=== PATIENT | male | born 1980 | race Caucasian/White ===

== ENCOUNTER → 2020-02-05 14:59 | Outpatient (CLI) | payer OTHER, SELFPAY ==
[2020-02-05 15:07] LABS: Microscopic, Urine URINE MICROSCOPIC (MICROSCOPIC)
[2020-02-05 15:15] LABS: Appearance,Urine CLEAR (Clear); Basophils % 0.4 % (0.1-2.0); Bilirubin,Urine Negative (Negative); Blood, Urine 1+ (Negative); Color,Urine YELLOW (Yellow); Eosinophils # 0.4 K/mm3 (0.0-0.4); Eosinophils % 4.3 % (0.1-12.0); Glucose,Urine (UA) Negative (Negative); Hematocrit 41.2 % (42.0-52.0); Hemoglobin 14.8 g/dL (14.1-18.0); Ketones,Urine Negative (Negative); Leukocyte Esterase,Urine Negative (Negative); Lymphocytes % 20.8 % (10-50); Mean Corpuscular HGB Conc 35.8 g/dL (31.8-35.4); Mean Corpuscular Hemoglobin 31.2 pg (27.0-31.2); Mean Corpuscular Volume 87.2 fl (80-94); Mean Platelet Volume 8.8 fl (7.4-10.4); Monocytes # 0.5 K/mm3 (0.1-1.0); Monocytes % 5.2 % (1.7-9.3); Neutrophils # 6.5 K/mm3 (1.8-7.8); Neutrophils % 69.2 % (37.0-80.0); Nitrate,Urine Negative (Negative); Platelet Count 289 K/mm3 (142-424); Protein,Urine Negative (Negative); Red Blood Count 4.72 M/mm3 (4.60-6.20); Red Cell Distribution Width 13.3 % (11.5-17.5); Urobilinogen,Urine 0.2 EU/dl (0.2); White Blood Count 9.3 K/mm3 (4.8-10.8)
[2020-02-05 15:26] LABS: Amorphous Sediment,Urine Trace /lpf; RBC,Urine Occasional #/hpf (0-3)
--- NOTE | 2020-02-05 15:46 | CT_ITS ---
PROCEDURE: CT ABDOMEN PELVIS WO CON CLINICAL INDICATION: L SIDE PAIN, R/O KIDNEY STONES Left flank pain COMPARISON: No exams were available for comparison TECHNIQUE: Axial images obtained with sagittal and coronal reformats. All CT scans at the facility use one or more dose reduction, viz: automated exposure control, ma/kV adjustment per patient size (including targeted exams where dose is matched to indication, i.e. head), or iterative reconstruction technique. FINDINGS: LOWER THORAX: Calcified granuloma is present in the right lower lobe. ABDOMEN & PELVIS: The liver, adrenal glands, and pancreas have an unremarkable appearance. There is borderline splenomegaly at 13 cm. No renal or ureteral calculi. There is a small hyperdensity along the upper pole of the left kidney 5 mm with an average density of 34 Hounsfield units and may be due to small hyperdense cyst no hydronephrosis. Unremarkable appendix. There is minimal stranding of the fat along the anterior lateral aspect of the descending colon best seen on image 50 series 3. This is nonspecific but could be seen with mild epiploic appendagitis. There is mild thickening of the colon involving the a patent flexure and transverse colon which may be due to nondistention. No evidence of diverticulitis. No abscess. There are few small mesenteric and inguinal lymph nodes. No acute bony findings. There is a small umbilical hernia containing fat. IMPRESSION: 1. Possible mild epiploic appendagitis along the descending colon 2. Borderline splenomegaly 3. Small hyperdensity along the upper pole of the left kidney at 34 Hounsfield units which may be due to a small hyperdense cyst. Ultrasound may confirm. Dictated by: Nicholas Chen MD 02/05/2020 16:30 Nicholas Chen MD in [place] 02/05/2020 16:30
== END ==
PROVIDERS: Visit Provider Internal Medicine
DX: R10.32 Left lower quadrant pain (principal); R10.12 Left upper quadrant pain
CPT/HCPCS: 36415; 74176; 81001; 85025

== ENCOUNTER → 2020-03-05 09:28 | Outpatient (CLI) | payer OTHER, SELFPAY ==
[2020-03-05 11:12] LABS: Coronavirus 19 IgG Antibody Negative (Negative); Coronavirus 19 IgM Antibody Negative (Negative)
== END ==
PROVIDERS: Visit Provider Internal Medicine Gastroenterology
DX: Z01.89 Encounter for other specified special examinations (principal); Z12.11 Encounter for screening for malignant neoplasm of colon
CPT/HCPCS: 36415; 86328

== ENCOUNTER 2020-03-07 11:59 | Day surgery (SDC) | payer OTHER, SELFPAY ==
[2020-03-02 10:09] VITALS: BMI 28.1
[2020-03-07 12:44] VITALS: BP 114/81; PULSE 74; RESP 15; TEMP 36.4; O2SAT 98
--- NOTE | 2020-03-07 14:09 | HMH.PROC ---
[facility] Procedure Note Procedure Note:: Colonoscopy Procedure Report: Colonoscopy with cold snare polypectomy Endoscopist: Mckay Vinson II, MD Referring physician: Rodríguez Wright MD Date of Procedure: March 07, 2020 Equipment: Olympus 180 variable stiffness pediatric colonoscope Sedation: MAC sedation Indication: Mr. Lopez is a 40-year-old gentleman who is here for initial screening colonoscopy secondary to a family history of colon polyps. The patient's father had adenomatous colon polyps in his 40s. The patient reports no abdominal pain, weight loss, change in his bowel habits or rectal bleeding. He reports no family history of colon cancer. He does have some intermittent constipation. Procedure: Prior to the procedure, a history and physical exam was performed, and patient's medications and allergies were reviewed. The risks, benefits and alternatives of the sedation and procedure were discussed with the patient. All questions were answered and informed consent was obtained. The patient was brought to the procedure room. Patient identification and proposed procedure were verified by the physician and the nurse. The patient was placed in a left lateral decubitus position and the scope was passed under direct vision. Throughout the procedure, the patient's blood pressure, pulse, and oxygen saturations were monitored continuously. The colonoscopy was accomplished without difficulty. The patient tolerated the procedure well. Findings: On digital rectal examination there was normal rectal tone. There were no external hemorrhoids. The colonoscope was introduced through the anal canal to the rectum and advanced to the cecum. The ileocecal valve and appendiceal orifice were identified. The scope was advanced a short distance into the ileum which appeared grossly normal. The scope was then withdrawn into the colon. There were 3 colon polyps (cecum x1 (7 mm), transverse x1 (3 mm) and sigmoid x1 (4 mm)) which were all removed via cold snare polypectomy. The remaining cecum, ascending, transverse, descending, sigmoid and rectum were grossly normal. There were no mucosal abnormalities identified. Upon retroflexion within the rectum there were grade 1-2 internal hemorrhoids.The preparation was excellent throughout with Marydel Preparation Score of 9. The cecal time was 12 minutes. Impression: 1. Diminutive colonic polyps x3 2. Grade 1-2 internal hemorrhoids Plan: I will follow up the polyp pathology and recommend repeat colonoscopy again in 5-10 years based upon the polyp histology. I would encourage fiber supplementation on a long-term daily maintenance basis.
[2020-03-07 14:10] VITALS: BP 135/81; PULSE 78; RESP 18; TEMP 36.2; O2SAT 93
[2020-03-07 14:20] VITALS: BP 140/77; PULSE 77; RESP 18; O2SAT 94
--- NOTE | 2020-03-07 14:22 | P.PN_ITS ---
[facility] Anesthesia Checklist - Structural Data Admitted From: Home Planned Operative Procedure/s: colonoscopy Consent for Planned Operative Procedure(s) Verified: Yes - Airway Assessment C-Spine Mobility Assessed: Yes TMJ Mobility Assessed: Yes Dentition: Dentures-good fit - Neurological Assessment Level of Consciousness: Awake, Alert, Appropriate - Anesthesia Plan Anesthesia Risk discussed: Yes Anesthesia Plan: Verified ASA Class: III Anesthesia Type: MAC [facility] History I have reviewed the patient's past medical history: Yes Medical History: Denies:: Cancer, Diabetes Mellitus Type 1, Diabetes Mellitus Type 2, Internal Pacemaker, MRSA, Seizures *Have you ever received a pneumonia vaccine?: No *Have you received a flu vaccine this season?: Yes Anesthesia experience/problems:: none Other Surgeries: No: Pacemaker Amputation: No Fractures: No - *Social History Alcohol Intake: never Substance Use Type: denies use *Occupational Status:: employed Housing: house Household Members: family *Travel in the last 8 weeks: None Family Hx:: No significant family history
[2020-03-07 14:30] VITALS: BP 139/81; PULSE 76; RESP 18; O2SAT 96
[2020-03-07 14:46] VITALS: BP 139/84; PULSE 71; RESP 18; O2SAT 99
== END 2020-03-07 14:52 | disposition home or self-care (01) ==
LOC: OUTP 12:02
PROVIDERS: PCP Internal Medicine; Visit Provider Internal Medicine Gastroenterology
PROC: 0DJD8ZZ Inspection of Lower Intestinal Tract, Via Natural or Artificial Opening Endoscopic (ICD-10-PCS; CPT 45378; principal; 2020-03-07 13:00)
DX: Z12.11 Encounter for screening for malignant neoplasm of colon (principal); K63.5 Polyp of colon; K64.0 First degree hemorrhoids; Z83.71 Family history of colonic polyps; Z80.0 Family history of malignant neoplasm of digestive organs; F41.9 Anxiety disorder, unspecified; F32.9 Major depressive disorder, single episode, unspecified; Z79.899 Other long term (current) drug therapy
CPT/HCPCS: 45385

== ENCOUNTER 2020-11-26 11:12 | Emergency (ER) | payer OTHER, SELFPAY ==
[2020-11-26 11:33] VITALS: BP 120/78; PULSE 79; RESP 20; TEMP 36.9; O2SAT 99; BMI 29.7
--- NOTE | 2020-11-26 12:16 | XR_ITS ---
PROCEDURE INFORMATION: Exam: XR Left Ribs with PA Chest Exam date and time: 11/26/2020 12:16 PM Age: 40 years old Clinical indication: Other: Left posterior and side rib pain; Additional info: Pain, no injury TECHNIQUE: Imaging protocol: XR Left ribs with PA chest. Views: 3 views COMPARISON: CT ABDOMEN PELVIS WO CON 02/05/2020 3:54 PM FINDINGS: Lungs: See Soft tissues finding. Pleural spaces: Unremarkable. No pleural effusion. No pneumothorax. Heart/Mediastinum: Unremarkable. No cardiomegaly. Bones/joints: See Soft tissues finding. Soft tissues: The submitted view of the chest is unremarkable. No acute cardiopulmonary process. The ribs are grossly normal. No acute or chronic fracture appreciated. No lytic process or expansile process. No rib notching. IMPRESSION: Unremarkable ribs.
--- NOTE | 2020-11-26 13:04 | HMH.EDUTC ---
[facility] Disposition Clinical Impression: Rib pain on left side Disposition: Home, Self-Care Condition on Discharge: Good Instructions: DI for Rib Contusion Prescriptions: Cyclobenzaprine HCl [Flexeril 10mg tablet] 10 mg PO Q8HP PRN 10 Days #30 tab PRN Reason: Muscle Spasm Transmission Status: Pending to [facility] Lidocaine [Lidoderm 5% transdermal patch] 1 each TP Q24H 30 Days #30 adh..patch Transmission Status: Pending to [facility] Ketorolac Tromethamine [Toradol 10mg tablet] 10 mg PO Q6HP PRN 5 Days #20 tab MDD 40mg/day PRN Reason: pain Transmission Status: Pending to [facility] Referrals: Rodríguez Wright [Primary Care Provider] - Medical Decision Making - [place] Inquiry Pt receiving controlled substance: No Vital Signs: 11/26/20 11:33 Temperature 98.5 F Temperature Source Temporal Artery Scan Pulse Rate [Left] 79 Respiratory Rate 20 Blood Pressure [Right Arm] 120/78 Blood Pressure Mean [Right Arm] 92 02 Sat by Pulse Oximetry 99 Orders (Tests/Meds): ED MEDICATIONS Discontinued Medications Generic Name Dose Route Start Last Admin Trade Name Freq PRN Reason Stop Dose Admin Ketorolac Tromethamine 60 mg 11/26/20 11:52 11/26/20 11:53 Ketorolac 60mg/2ml Vial IM 11/26/20 11:53 60 mg ONCE ONE Administration ORDERS Category Date Time Status XR ribs LT min 3V w CXR1V Stat Exams 11/26/20 12:16 Taken - Radiology Data #1 Image(s): Chest, Other (ribs) Image Reviewed: Yes I reviewed the patient's radiology image Preliminary Findings: Normal/NAD, No Fracture Seen [facility] HPI - General Stated complaint: lft back pain Time Seen by Provider: 11/26/20 12:05 Mode of Arrival: Ambulatory Source of Information: Patient Limitations: No Limitations Description of Symptoms (Recalled from Triage Doc. by RN): pt c/o L flank pain that started after he sneezed a few days ago. HEENT Symptoms (Recalled from RN notes): No Resp Symptoms (Recalled from RN notes): No Skin Symptoms (Recalled from RN notes): No MS Symptoms (Recalled from RN notes): No Functional Status (Recalled from RN notes): na - History of Present Illness Provider Complaint: Patient states that he sneezed rather violently yesterday and had pain in his left side. It has gotten progressively worse and he cannot get comfortable. It is particularly bad if he coughs or sneezes again. He has never had a kidney stone and has no pain with urination or hematuria. Onset (ago): day(s) (1) Location: chest Relieving factors: none Exacerbating factors: none Associated symptoms: denies other symptoms Treatments prior to arrival: none - Related Data Home Medications Medication Instructions Recorded Confirmed Cetirizine HCl [Zyrtec] 10 mg PO DAILY 03/02/20 03/07/20 Citalopram Hydrobromide 40 mg PO DAILY 03/02/20 03/07/20 [Citalopram 40mg Tablet] Montelukast Sodium 4 mg PO DAILY 03/02/20 03/07/20 Previous Rx's Medication Instructions Recorded Cyclobenzaprine HCl [Flexeril 10mg 10 mg PO Q8HP PRN 10 Days #30 tab 11/26/20 tablet] Ketorolac Tromethamine [Toradol 10 mg PO Q6HP PRN 5 Days #20 tab 11/26/20 10mg tablet] MDD 40mg/day Lidocaine [Lidoderm 5% transdermal 1 each TP Q24H 30 Days #30 11/26/20 patch] adh..patch Allergies Allergy/AdvReac Type Severity Reaction Status Date / Time No Known Allergies Allergy Verified 03/07/20 12:43 - Worker's Comp Is this a Worker's Comp case?: No [facility] History - Hepatitis A Screen Drug use history?: No High risk sexual behaviors?: No History of sexually transmitted infection?: No Currently employed?: No Childcare worker?: No Do you have indoor plumbing?: Yes Do you have electricity?: Yes Attestation statement:: This patient has been screened for Hepatitis A risk factors. Medical History: Denies:: Cancer, Diabetes Mellitus Type 1, Diabetes Mellitus Type 2, Internal Pacemaker, MRSA, Seizures Other Surgeries
[2020-11-26 13:20] VITALS: BP 129/75; PULSE 77; RESP 18; TEMP 36.6
== END 2020-11-26 13:24 | disposition home or self-care (01) ==
PROVIDERS: Emergency Provider Physician Assistant; PCP Internal Medicine
DX: R07.81 Pleurodynia (principal)
CPT/HCPCS: 71101; 96372; 99202; G0463

== ENCOUNTER → 2021-06-05 10:00 | Outpatient (CLI) | payer OTHER, SELFPAY | PROVIDERS: PCP Internal Medicine; Visit Provider Internal Medicine | DX: Z20.822 Contact with and (suspected) exposure to COVID-19 (principal) | CPT/HCPCS: C9803; U0003; U0005 ==

== ENCOUNTER → 2021-06-21 10:31 | Outpatient (CLI) | payer OTHER, SELFPAY | PROVIDERS: PCP Internal Medicine; Visit Provider Nurse Practitioner | DX: U07.1 COVID-19 (principal) | CPT/HCPCS: C9803; U0003; U0005 ==